=== PATIENT | male | born 1945 | race Caucasian/White ===

== ENCOUNTER → 2019-04-07 | Outpatient (CLI) | payer MEDICARE ==
--- NOTE | 2019-04-07 17:55 | PCVCIMAG ---
APPROVED REPORT Study performed: 04/07/2019 14:49:01 EXAM: Comprehensive 2D, Doppler, and color-flow Echocardiogram Patient Location: Echo lab Status: routine BSA: 2.22 Indications Abnormal ECG Atrial Fibrillation 2D Dimensions IVSd: 14.71 (7-11mm) LVDd: 44.12 mm PWd: 14.55 (7-11mm)Ascending Ao: 43.54 (22-36mm) LVDs: 27.34 (25-40mm) Left Atrium: 46.69 (27-40mm) Aortic Root: 36.02 mm LV Single Plane 4CH: 48.08 % LV Single Plane 2CH: 47.25 % Biplane EF: 48.6 % Volumes Left Atrial Volume (Systole) Single Plane 4CH: 92.64 mLSingle Plane 2CH: 93.35 mL LA ESV Index: 44.00 mL/m2 Aortic Valve AoV Peak Chuck.: 1.38 m/s AO Peak Gr.: 7.67 mmHgLVOT Max P.56 mmHg LVOT Max V: 0.94 m/s Pulmonary Valve PV Peak Chuck.: 1.23 m/sPV Peak Gr.: 6.09 mmHg Pulmonary Vein P Vein S: 0.34 m/s P Vein D: 0.74 m/s P Vein S/D Ratio: 0.46 Tricuspid Valve TR Peak Chuck.: 2.32 m/s TR Peak Gr.: 21.56 mmHg Left Ventricle The left ventricle is normal size. There is normal LV segmental wall motion. Moderate concentric left ventricular hypertrophy. Left ventricular systolic function is borderline lower limits of normal. LVEF is 50%. This study is not technically sufficient to allow evaluation of the LV diastolic function due to atrial fibrillation. Right Ventricle The right ventricle is normal size. The right ventricular systolic function is normal. Atria Left atrium is moderately dilated. Right atrium is mildly dilated. Aortic Valve The aortic valve is normal in structure. No aortic regurgitation is present. There is no aortic valvular stenosis. Mitral Valve The mitral valve is normal in structure. Mild mitral regurgitation. No evidence of mitral valve stenosis. Tricuspid Valve The tricuspid valve is normal in structure. Trace tricuspid regurgitation with PAP of 29 mmHg. Pulmonic Valve The pulmonary valve is normal in structure. There is no pulmonic valvular regurgitation. Great Vessels The aortic root is normal in size. Ascending aorta is dilated to 4.4 cm. IVC is normal in size and collapses >50% with inspiration. Pericardium There is no pericardial effusion. There is no pleural effusion. <Conclusion> The left ventricle is normal size. Moderate concentric left ventricular hypertrophy. Left ventricular systolic function is borderline lower limits of normal. LVEF is 50%. This study is not technically sufficient to allow evaluation of the LV diastolic function due to atrial fibrillation. The right ventricle is normal size. Left atrium is moderately dilated. Right atrium is mildly dilated. The aortic valve is normal in structure. Mild mitral regurgitation. Trace tricuspid regurgitation with PAP of 29 mmHg. The aortic root is normal in size. There is no pericardial effusion.
== END | disposition home or self-care (01) ==
LOC: PCVCIMAG 15:19
PROVIDERS: ATTEND Internal Medicine Cardiovascular Disease
DX: I34.0 Nonrheumatic mitral (valve) insufficiency (principal); I48.91 Unspecified atrial fibrillation; E78.5 Hyperlipidemia, unspecified; I45.10 Unspecified right bundle-branch block; I44.4 Left anterior fascicular block; R94.31 Abnormal electrocardiogram [ECG] [EKG]; I11.9 Hypertensive heart disease without heart failure; E03.9 Hypothyroidism, unspecified
CPT/HCPCS: 36415; 80061; 93005; 93306; G0463

== ENCOUNTER → 2019-04-13 | Outpatient (CLI) | payer MEDICARE ==
[~2019-04-13] MED LIST: REGADENOSON 0.4 MG/5 ML DISP.SYRIN. IV ONE
--- NOTE | 2019-04-13 18:05 | PCVCIMAG ---
APPROVED REPORT Imaging Protocol: Rest Tc-99m/Stress Tc-99m 1 day Study performed: 04/13/2019 13:56:24 Indication: Abnormal EKG, Atrial Fibrillation Patient Location: Out-Patient Stress Nurse: Maria Isabel Nina RN, Dede Valenzuela RN [place] Tech:Vivi Frenchcallum [facility] Ht: 5 ft 8 in Wt: 243 lbs BSA: 2.22 m2 HR: 74 bpm BP: 108/78 mmHg BMI: 36.9 Rhythm: Atrial Fibrillation Medical History Medical History: Hyperlipidemia, HTN, Atrial Fibrillation Medications: Eliquis, Atorvastatin, Edarbyclor, Chorthalidone, Zetia, Metformin, Micardis Allergies: No known drug allergies Cardiac Risk Factors: Age Pretest Chest Pain Characteristics: No chest pain Exercise History: Indeterminate Resting Data Rest SPECT myocardial perfusion imaging was performed in supine position 45 minutes following the intravenous injection of 13.2 mCi of Tc-99m Sestamibi. Time of rest injection: 1315 Administration Route: IV Administration Site: Right AC Pharmacologic Stress Pharmacologic stress test was performed by injecting Regadenoson 0.4 mg IV push over 10-15 seconds immediately followed by the intravenous injection of 44.6 mCi of Tc-99m Sestamibi. Time of stress injection: 1420 Date: 04/13/2019 Administration Route: IV Administration Site: Right AC Gated Stress SPECT was performed 45 minutes after stress injection. The images were gated to evaluate regional wall motion and calculate left ventricular ejection fraction. Stress Test Details Stress Test: Pharmacologic stress was paired with low level exercise. Reason for pharmacologic stress test: Afib. HRMax Heart Rate (APMHR): 148 bpm Resting HR: 74 bpmTarget HR (85% APMHR): 125 bpm Max HR Achieved: 114 bpm % of APMHR: 77 Recovery HR: 85 bpm BP Resting BP: 108/78 mmHg Max BP: 114/76 mmHg Recovery BP: 108/78 mmHg ECG Resting ECG: Atrial Fibrillation Stress ECG: Atrial Fibrillation Arrhythmia: VPC's Recovery ECG: Atrial Fibrillation Clinical Reason for Termination: Completed protocol Stress Symptoms: Dyspnea Exercise duration: 4 min 00 sec Exercise capacity: 1.6 METs Symptoms resolved with caffeine. Stress ECG Conclusion ECG: Non-ischemic Study Quality Study: Good Study Data Post stress, the left ventricular ejection was 68%.. SSS: 1 SRS: 0 SDS: 1 TID = 1.31. Perfusion No evidence of focal stress induced ischemia or prior myocardial infarction. Post-stress ventricular dilatation is nonspecific but may be seen with balanced ischemia. Please correlate clinically. Wall Motion Normal left ventricular function with no regional wall motion abnormalities. Nuclear Conclusion No evidence of focal stress induced ischemia or prior myocardial infarction. Post-stress ventricular dilatation is nonspecific but may be seen with balanced ischemia. Please correlate clinically. Post stress, the left ventricular ejection was 68%. No prior study available for comparison. Interpreted by: Puma Rodrigues MD Electronically Approved: 04/13/2019 15:58:52 <Conclusion> ECG: Non-ischemic
== END | disposition home or self-care (01) ==
LOC: PCVCIMAG 12:53
PROVIDERS: ATTEND Internal Medicine Cardiovascular Disease
DX: I48.91 Unspecified atrial fibrillation (principal); I10 Essential (primary) hypertension; I45.10 Unspecified right bundle-branch block; I44.4 Left anterior fascicular block; R94.31 Abnormal electrocardiogram [ECG] [EKG]
CPT/HCPCS: 36415; 78452; 80061; 93005; 93017; A9500; G0463; J2785